=== PATIENT | female | born 1990 | race Two or more races ===

== ENCOUNTER 2016-12-10 23:37 | Emergency (ER) | payer SELFPAY ==
[~2016-12-10] VITALS: Ht 154.9 cm; Wt 65.8 kg
[2016-12-10] MEDS ORDERED: MUPI1OIN NS (23:49)
[2016-12-10] MEDS ORDERED: ACET-704 PO (23:49)
[2016-12-10] MEDS ORDERED: SULF1TAB23 PO (23:49)
--- NOTE | 2016-12-10 23:50 | PHYS DOC ---
Adult General Chief Complaint Chief Complaint: SKIN RASH/ABSCESS HPI HPI Patient is a 26 year old female who presents with an abscess on the right buttock that she has had for a couple days. Patient denies any fever. She states she has history of previous abscesses. She has not taken any antibiotics in the last 1 month. She is also requesting a prescription for Bactroban nasal ointment stating she was told if she uses it she will never get an abscess. Review of Systems Review of Systems Constitutional: Denies fever or chills [] Eyes: Denies change in visual acuity, redness, or eye pain [] HENT: Denies nasal congestion or sore throat [] Musculoskeletal: Denies back pain or joint pain [] Integument: Right buttock abscess Neurologic: Denies headache, focal weakness or sensory changes [] Endocrine: Denies polyuria or polydipsia [] Current Medications Current Medications Current Medications Medications (Trade) Dose Ordered Sig/Martinez Start Time Stop Time Status Last Admin Dose Admin Diphtheria/ Tetanus/Acell Pertussis (Boostrix) 0.5 ml ONCE ONCE 12/11/16 00:00 12/11/16 00:01 UNV Physical Exam Physical Exam Constitutional: Well developed, well nourished, no acute distress, non-toxic appearance. [] HENT: Normocephalic, atraumatic, bilateral external ears normal, oropharynx moist, no oral exudates, nose normal. [] Skin: Right buttock with an three tiny open wounds with surrounding cellulites approximately 1 cm each, the area is warm and tender to touch with no fluctuance. There is nothing to drain today. Back: No tenderness, no CVA tenderness. [] Extremities: No tenderness, no cyanosis, no clubbing, ROM intact, no edema. [] Neurologic: Alert and oriented X 3, normal motor function, normal sensory function, no focal deficits noted. [] Psychologic: Affect normal, judgement normal, mood normal. [] EKG EKG [] Radiology/Procedures Radiology/Procedures [] Course & Med Decision Making Course & Med Decision Making Pertinent Labs and Imaging studies reviewed. (See chart for details) Patient has abscess and cellulitis of the right buttock. She was discharged with Bactrim for 10 days. She requested Bactroban nasal ointment stating she was told if she uses it she'll never have an abscess. Prescription was given to her and she was provided education. Provided return precautions and discharged in stable condition. [place] Disclaimer [place] Disclaimer This electronic medical record was generated, in whole or in part, using a voice recognition dictation system. Departure Departure Impression: Primary Impression: Abscess of cellulitis of buttock Disposition: HOME, SELF-CARE Condition: STABLE Referrals: BILLY UNDERWOOD (PCP) Follow-up with your doctor in one week Patient Instructions: Abscess Additional Instructions: You have an abscess of the right buttock. Keep the area clean and dry. Apply warm compresses to the area twice a day, complete your antibiotics. Scripts Acetaminophen With Codeine (Tylenol With Codeine #3 Tablet)1 Each Tablet1 Tab PO PRN Q4HRS PRN PAIN #30 TAB Prov:LATESHA GARCIA APRN 12/10/16 Sulfamethoxazole/Trimethoprim (Bactrim 400-80 Mg Tablet)1 Each Tablet1 Tab PO BID #20 TAB Prov:LATESHA GARCIA APRN 12/10/16 Mupirocin Calcium (Bactroban Nasal)1 Gm Oint...g.1 Gm NS BID #10 GM Prov:LATESHA GARCIA APRN 12/10/16 LATESHA GARCIA APRN Dec 10, 2016 23:50
[2016-12-10 23:51] VITALS: BP 129/78
[2016-12-11] MEDS ORDERED: DIPHTH,PERTUSS(ACELL),TET TOX 0.5 ML DISP.SYRIN. VAX IM ONE
== END 2016-12-11 00:07 | disposition home or self-care (01) ==
LOC: ER 23:37
DX: L02.31 Cutaneous abscess of buttock (principal)
CPT/HCPCS: 90471; 90715; 99283-25

== ENCOUNTER 2019-05-22 21:25 | Emergency (ER) | payer SELFPAY ==
[~2019-05-22] VITALS: Ht 154.9 cm; Wt 79.4 kg
[~2019-05-22 21:25] MED LIST: ACET-704 PO; MUPI1OIN NS; SULF1TAB23 PO
[2019-05-22 21:30] VITALS: BP 150/93
[2019-05-22 21:41] LABS: BILIRUBIN,URINE NEGATIVE (NEG); CLARITY,URINE CLEAR; COLOR,URINE YELLOW; NITRITE,URINE NEGATIVE (NEG); PH,URINE 7.5; PROTEIN,URINE NEGATIVE (NEG-TRACE); UROBILINOGEN,URINE 0.2 mg/dL (0.2 mg/dL)
[2019-05-22 21:47] LABS: BACTERIA,URINE MOD /HPF (0-FEW); RBC,URINE TNTC /HPF (0-2); SQUAMOUS EPITHELIAL CELL,UR OCC /LPF
[2019-05-22] MEDS ORDERED: CEPH500C PO (22:03)
--- NOTE | 2019-05-22 22:17 | PHYS DOC ---
Past Medical History Past Medical History: Anxiety, Bipolar Past Surgical History: Other Additional Past Surgical Histo: D&C Alcohol Use: Occasionally Drug Use: None Adult General Chief Complaint Chief Complaint: BLOOD IN URINE [facility] HPI Patient is a 28 year old f p/w dysuria pain with urination and some blood in urine for 24 hours no fever vomiting or back pain All other ROS neg unless otherwise noted in HPI Review of Systems Review of Systems see above Allergies Allergies Allergies Coded Allergies Type Severity Reaction Last Updated Verified No Known Drug Allergies 12/10/16 No Physical Exam Physical Exam see above Constitutional: Well developed, well nourished, no acute distress, non-toxic appearance. [] HENT: Normocephalic, atraumatic, bilateral external ears normal, oropharynx moist, no oral exudates, nose normal. [] Eyes: PERRLA, EOMI, conjunctiva normal, no discharge. [] Pulmonary: Normal respiratory effort no increased work of breathing no obvious chest wall trauma Abdomen: Bowel sounds normal, soft, no tenderness, no masses, no pulsatile masses. [] Skin: Warm, dry, no erythema, no rash. [] Extremities: No tenderness, no cyanosis, no clubbing, ROM intact, no edema. [] Neurologic: Alert and oriented X 3, normal motor function, normal sensory function, no focal deficits noted. [] Psychologic: Affect normal, judgement normal, mood normal. [] Current Patient Data Vital Signs Vital Signs Date Time Temp Pulse Resp B/P (MAP) Pulse Ox O2 Delivery O2 Flow Rate FiO2 05/22/19 21:30 98.9 84 18 150/93 (112) 99 Room Air 98.9 Lab Values Laboratory Tests Test 05/22/19 21:30 05/22/19 21:33 Urine Color Yellow Urine Clarity Clear Urine pH 7.5 Urine Specific [place] 1.015 Urine Protein Negative mg/dL (NEG-TRACE) Urine Glucose (UA) Negative mg/dL (NEG) Urine Ketones (Stick) Negative mg/dL (NEG) Urine Blood Large (NEG) Urine Nitrite Negative (NEG) Urine Bilirubin Negative (NEG) Urine Urobilinogen Dipstick 0.2 mg/dL (0.2 mg/dL) Urine Leukocyte Esterase Small (NEG) Urine RBC Tntc /HPF (0-2) Urine WBC 5-10 /HPF (0-4) Urine Squamous Epithelial Cells Occ /LPF Urine Bacteria Mod /HPF (0-FEW) Urine Mucus Slight /LPF POC Urine HCG, Qualitative Hcg negative (Negative) EKG EKG [] Radiology/Procedures Radiology/Procedures [] Course & Med Decision Making Course & Med Decision Making Pertinent Labs and Imaging studies reviewed. (See chart for details) []uti on lab and by history well appearing Dragon Disclaimer Dragon Disclaimer This electronic medical record was generated, in whole or in part, using a voice recognition dictation system. Departure Departure Impression: Primary Impression: Urinary tract infection Disposition: HOME, SELF-CARE Condition: STABLE Patient Instructions: Urinary Tract Infection, [id number] Scripts Cephalexin (CEPHALEXIN) 500 Mg Capsule 1 CAP PO QID, #28 CAP Prov: JOEY CRENSHAW MD 05/22/19 JOEY CRENSHAW MD May 22, 2019 22:17
== END 2019-05-22 22:15 | disposition home or self-care (01) ==
LOC: ER 21:25
DX: N39.0 Urinary tract infection, site not specified (principal); F31.9 Bipolar disorder, unspecified
CPT/HCPCS: 81001; 81025; 99283